=== PATIENT | male | born 1995 | race Caucasian/White ===

== ENCOUNTER 2016-07-13 08:45 | Emergency (ER) | payer OTHER | END 2016-07-13 13:00 | disposition home or self-care (01) | LOC: ER 08:45 | DX: K50.10 Crohn's disease of large intestine without complications (principal); I88.0 Nonspecific mesenteric lymphadenitis; E66.9 Obesity, unspecified; I10 Essential (primary) hypertension; Z79.899 Other long term (current) drug therapy | CPT/HCPCS: 36415; 84482 ==